=== PATIENT | male | born 1965 | race Caucasian/White ===

== ENCOUNTER 2024-03-15 06:39 | Day surgery (SDC) | payer BC, SELFPAY ==
[2024-03-15 10:17] LABS: Glucose - Point of Care 118 mg/dl (70-99)
== END 2024-03-15 12:32 | disposition home or self-care (01) ==
LOC: GI 06:39
PROVIDERS: ATTENDING PHYSICIAN Internal Medicine Gastroenterology
DX: Z12.11 Encounter for screening for malignant neoplasm of colon (principal); K62.1 Rectal polyp; K63.5 Polyp of colon; Z86.0100 Personal history of colon polyps, unspecified
CPT/HCPCS: 45385; 45380; 88305; 82962

== ENCOUNTER 2025-02-03 06:27 | Day surgery (SDC) | payer BC, SELFPAY ==
[2025-01-22 13:52] VITALS: BMI 40.7
[2025-02-03] VITALS (8 sets, daily range): BP systolic 151–178; BP diastolic 64–89; BMI 40.7
--- NOTE | 2025-02-03 12:45 | HP.FOC2 ---
Focused History & Physical
Chief Complaint
HPI:
Chief Complaint: umbilical hernia
HPI / Indication for Planned Procedure: 59 y/o male with longstanding history of an umbilical hernia that has slowly increased in size over the years presenting for scheduled operative correction.
Relevant Past Medical History: Hypertension, Sleep Apnea and Other (hyperlipidemia)
Relevant Social History: Negative
Relevant Family History: Negative
Relevant Past Surgical History: Negative
Review of Systems
Review of Pertinent Systems: All Systems Negative
Medication
See Medication form for detailed medications: Yes
Medication List (including Herbals & OTC):
CoQ-10 1 cap PO DAILY 01/27/25
cetirizine 10 mg tablet (Zyrtec) 10 mg PO HS 01/27/25
metformin 750 mg tablet 750 mg PO BID 01/27/25
repaglinide 1 mg tablet 1 mg PO BID 01/27/25
rosuvastatin 5 mg tablet 5 mg PO DAILY 01/27/25
Medications Reviewed: Yes
Allergies and Reactions
Patient has Allergies: No
Noted Allergies and Reactions:
Allergy/AdvReac Type Severity Reaction Status Date / Time
No Known Allergies Allergy Verified 01/27/25 15:50
Pertinent Physical Exam
All Other Systems: Negative
Head/Neck: Normal
Lungs: Normal
Heart: Normal
Abdomen: Other (reducible umbilical hernia, 3cm)
Diagnosis / Assessment
59 y/o male presenting for scheduled operative correction symptomatic umbilical hernia
Plan / Procedure
robotic assisted laparoscopic repair umbilical hernia with mesh
Anesthesia/Sedation to be done by Anesthesia Provider: Yes
--- NOTE | 2025-02-03 12:48 | W.SUR.PREOP ---
Pre-Operative Surgical Note
-
I have examined this patient prior to the performance of the scheduled procedure.
The patient's condition is unchanged from the time of the current History and
Physical and the patient is able to undergo the scheduled procedure.
[2025-02-03] MEDS: TYLENOL 1000 MG PO (13:38)
[2025-02-03 13:53] LABS: Glucose - Point of Care 99 mg/dl (70-99)
[2025-02-03] MEDS: NORMOSOL-R/PLASMALYTE-A 1000 IV (13:54)
--- NOTE | 2025-02-03 15:42 | W.IMMPOSTOP ---
Addendum entered and electronically signed by Sergio Palomares MD 02/03/25 15:51:
#[id number]
Original Note:
Surgical Immed Post Op Note
-
Primary Surgeon: Sergio Palomares MD
Assisting Surgeon: Di Morse NP
Pre-op Diagnosis: Umbilical hernia
Post-op Diagnosis: Umbilical hernia; 3 cm
Procedure Performed: Robotic-assisted laparoscopic SUKUMAR repair umbilical hernia with mesh; BD soft mesh 15 cm x 13 cm
Anesthesia Type: GETA + 0.25% Marcaine
Specimen / Cultures: None
Estimated Blood Loss: 6 mL
Complications: none immediate
Operative Findings: Umbilical hernia with omental adhesions. Transabdominal preperitoneal repair. 3 cm fascial defect closed with 0 PDS STRATAFIX symmetric suture. Underlay preperitoneal mesh repair, BD soft mesh 15 cm x 13 cm secured with 2-0
Vicryl stitches. Peritoneal flap closed with 2-0 Monocryl STRATAFIX spiral.
The assistance of Di Morse NP was required due to the complexity of the procedure. During the procedure Di Morse NP assisted with port placement, robotic instrumentation and suture material exchanges, and closure of the surgical
incision sites. I was present for the entirety of the operative procedure.
[2025-02-03] MEDS: DILAUDID 0.25 MG IV ×2 (16:04→16:15)
[2025-02-03 16:13] LABS: Glucose - Point of Care 164 mg/dl (70-99)
[2025-02-03] MEDS: ZOFRAN 4 MG IV (17:13)
== END 2025-02-03 17:58 | disposition home or self-care (01) ==
LOC: SDS 06:27
PROVIDERS: ATTENDING PHYSICIAN Surgery; FAMILY PHYSICIAN Physician Assistant Medical
DX: K42.9 Umbilical hernia without obstruction or gangrene (principal)
CPT/HCPCS: 49593; 82962; 93005; C1781